=== PATIENT | male | born 1950 | race Two or more races ===

== ENCOUNTER 2024-10-15 06:07 | Inpatient (IN) | payer OTHER ==
[~2024-10-15] VITALS: Ht 170.2 cm; Wt 66.8 kg
[2024-10-15] MEDS: ceFAZolin 2 GM/D5W100ml 100 ML IV ONE (05:20)
[~2024-10-15 06:07] MED LIST: B-COCAP34 OR; BUPIVACAINE 0.25% INJ 50ML VIAL ONE; CALC280T PO; CEFEPIME 1GM/ 50ML 50 ML IV ONE; DOXAPRAM HCL 20 MG/ML 20ML VIAL INJ IV ONE; HYDROmorphone HCL 2 MG/ML VL/or syr ONE; KETAMINE 50mg/ML 1ml syringe ONE; KETOROLAC TROMETH 30 MG/ML 1ML VIAL ONE; LACT10SO3 PO; LIDOCAINE 1% INJ PF 5ML AMP ONE; LIDOCAINE HCL 2% TOP JELLY 5ML TOP ONE; MIDAZOLAM HCL 2MG/2ML 2ml VIAL (1mg/ml) ONE; MORPHINE SULF PF 5 MG/10 ML VIAL ONE; MULT-1198 PO; OXY10CRT PO; PROPOFOL 10 MG/ML 20 ML IV ONE; ROCURONIUM 10MG/ML 10ML VIAL IV ONE; SODIUM CHLORIDE LOCK 50 ML ONE; SUCCINYLCHOLINE CHLORIDE 20 MG/ML 10ML VIAL IV ONE; TRANEXAMIC ACID 20 ML ONE; VANCOMYCIN HCL 1000 MG VL ONE; VITALIQ10 XX; fentaNYL CITRATE 100 MCG/2 ML VL ONE; fentaNYL CITRATE 5 ML ONE
[2024-10-15] MEDS: ACETAMINOPHEN 325 MG TAB PO ONE (06:30)
[2024-10-15] MEDS ORDERED: DexAMETHasone SOD PHOS 10MG/1ML VIAL INJ ONE (06:33)
[2024-10-15] MEDS ORDERED: SUGAMMADEX 200mg/2ml Vial (100MG/ML) IV ONE (06:33)
[2024-10-15] MEDS: ACETAMINOPHEN 500 MG TAB or CAP PO ONE (07:15)
[2024-10-15] MEDS: PREGABALIN CAPSULE 75 MG CAP PO ONE (07:15)
[2024-10-15] MEDS: CELECOXIB 100 MG CAP PO ONE (07:15)
[2024-10-15] MEDS ORDERED: METOCLOPRAMIDE HCL 5MG/ml INJ 2ml VIAL IV ONE (07:30)
[2024-10-15] MEDS ORDERED: HYDROmorphone HCL 2 MG/ML VL/or syr IV PRN (07:30)
[2024-10-15] MEDS ORDERED: MORPHINE SULFATE INJ 2 MG/ml SYRG IV PRN ×2 (07:30→10:00)
[2024-10-15] MEDS ORDERED: MORPHINE SULFATE 4 MG/ML SYR/VIAL IV PRN (07:30)
[2024-10-15] MEDS ORDERED: oxyCODONE ER 20 MG TAB PO SCH (10:00)
[2024-10-15] MEDS ORDERED: HYDROMORPHONE HCL 1 MG/ML INJ IV PRN (10:00)
[2024-10-15] MEDS ORDERED: NITROGLYCERIN 0.4 MG SL TAB SL PRN (10:00)
[2024-10-15] MEDS ORDERED: ceFAZolin 1GM/50ML 50 ML IV SCH (10:00)
[2024-10-15 10:17] VITALS: PULSE 75; RESP 12; O2SAT 100
[2024-10-15] MEDS: HYDROmorphone HCL 2 MG/ML VL/or syr IV PRN (10:30)
[2024-10-15] MEDS: OXYCODONE W/ ACETAMINOPHEN 5/325MG TABLET PO PRN (11:16)
--- NOTE | 2024-10-15 13:30 | DVH ---
CLINICAL INDICATION: sp Left reverse TSA TECHNIQUE: 1 radiographic views of the left shoulder were obtained. Comparison: None FINDINGS/IMPRESSION: Postsurgical changes from left shoulder arthroplasty.
[2024-10-15] MEDS: ceFAZolin 1GM/50ML 50 ML IV SCH (16:06)
--- NOTE | 2024-10-15 16:42 | DVHINCON2 ---
Date Seen: Oct 15, 2024 Referring Physician Orthopedic surgery. Reason for Consultation Primary care management. History of Present Illness 73-year-old male with a known history of chronic back pain: Oxycodone at home, previous history of bilateral hip surgery, previous history of right shoulder surgery presented to the hospital with elective procedure for left shoulder rotator cuff surgery. Patient underwent reverse left shoulder arthroplasty. Postprocedure patient did fairly well. Denies any fevers chills, chest pain shortness breath, nausea vomiting hematemesis hematochezia melena dysuria in the GB. Past Medical History Chronic pain syndrome Past Surgical History Bilateral hip replacement Previous history of right shoulder rotator cuff surgery Allergies: Coded Allergies: NO KNOWN ALLERGIES (Unverified , 10/12/24) Home Meds Reported Medications Tocopherol, Dl-Alpha (Vitamin E) Liq, 1 XX DAILY, LIQ 10/12/24 Calcium Amino Acid Chelate (Calcium) 280 Mg Tab, PO DAILY, TAB 10/12/24 Oxycodone Hcl (OxyCONTIN ER Tablet) 10 Mg Tb, 10 MG PO PRN, TAB 10/12/24 B-Complex Vitamins (B Complex) Cap, 1 OR DAILY, CAP 10/12/24 Multiple Vitamins W/ Minerals (Centrum Adults 50+ Multig) 1 Chw Chw, 1 CHW PO DAILY, TAB.CHEW 10/12/24 Lactulose (Lactulose) 10 Gm/15 Ml Arianna, 15 ML PO, ML 10/12/24 Current Medications Current Medications Medications (Trade) Dose Ordered Sig/Rosemary Route PRN Reason Start Time Stop Time Status Last Admin Hydromorphone HCl (Dilaudid Injection) 0.5 mg Q10M PRN IV SEVERE PAIN (7-10 PAIN SCALE) 10/15/24 07:30 10/15/24 09:03 DC 10/15/24 14:22 Morphine Sulfate 2 mg Q4H PRN IV BREAKTHRU PAIN SCALE 7-10 10/15/24 07:30 10/15/24 11:31 DC Hydromorphone HCl (Dilaudid Injection) 0.25 mg Q10M PRN IV MODERATE PAIN (4-6 PAIN SCALE) 10/15/24 07:30 10/15/24 09:03 DC Morphine Sulfate 1 mg Q30M PRN IV SEVERE PAIN (7-10 PAIN SCALE) 10/15/24 07:30 10/15/24 09:31 DC Sodium Chloride (Saline Lock Ns) 10 ml Q8HR IV 10/15/24 14:00 Cefazolin Sodium 50 ml @ 50 mls/hr Q8H IV 10/15/24 10:00 10/15/24 12:38 DC Dextrose/Lactated Ringer's 1,000 ml @ 100 mls/hr Q10H IV 10/15/24 10:00 Nitroglycerin (Ntrostat Sublingual) 0.4 mg Q5MINP PRN SL FOR CHEST PAIN 10/15/24 10:00 Morphine Sulfate 2 mg Q30M PRN IV FOR CHEST PAIN 10/15/24 10:00 Oxycodone HCl (OxyCONTIN ER Tablet) 20 mg Q12HR PO 10/15/24 10:00 Cancel Oxycodone/ Acetaminophen (Percocet 5/ 325MG Tablet) 2 tab Q4HP PRN PO MILD PAIN (1-3 PAIN SCALE) 10/15/24 10:00 10/15/24 11:16 Hydromorphone HCl (Dilaudid Innjection) 1 mg Q3HPRN PRN IV MODERATE PAIN (4-6 PAIN SCALE) 10/15/24 10:00 Cefazolin Sodium 50 ml @ 50 mls/hr Q8H IV 10/15/24 16:30 10/16/24 09:29 10/15/24 16:06 Oxycodone HCl (OxyCONTIN ER Tablet) 20 mg Q12HR PO 10/15/24 22:00 Review of Systems 12 review of system are negative serum mentioned above Vital Signs Vital Signs Date Time Temp Pulse Resp B/P (MAP) Pulse Ox O2 Delivery O2 Flow Rate FiO2 10/15/24 15:30 78 12 116/65 (82) 97 10/15/24 10:17 Nasal Cannula 4.0 10/15/24 10:17 97.0 97.0 Physical Exam HEENT pupils are reactive Neck is supple CV is S1-S2 regular rate and rhythm Respiratory: Clear GI positive bowel sound Extremity no edema [employer] no motor deficit Assessment 73-year-old male with a known history of chronic pain syndrome is here for 1. Left shoulder rotator cuff tear status post reverse shoulder arthroplasty 2. Chronic pain syndrome -continue pain meds as needed, DVT GI prophylaxis, discharge plan per Orthopedics. Plan discussed with: Patient Date of Service: Oct 15, 2024 Billing Provider: JUANJOSE KRUGER MD Common Visit Codes: NOT BILLABLE JUANJOSE KRUGER MD Oct 15, 2024 16:42
[2024-10-15 17:43] VITALS: O2SAT 94
[2024-10-15 17:44] VITALS: BP 135/83; PULSE 82; RESP 17; TEMP 98.6; O2SAT 94
[2024-10-15] MEDS: D5W/LACTATED RINGERS 1,000 ML IV SCH (18:16)
[2024-10-15 20:00] VITALS: PULSE 95; RESP 16; O2SAT 94
[2024-10-15 21:00] VITALS: BP 118/60; PULSE 95; RESP 16; TEMP 98.4; O2SAT 94
[2024-10-15] MEDS: SODIUM CHLOR 0.9% PF (SALINE LOCK) 10ML VIAL/SYR IV SCH (22:06)
[2024-10-15] MEDS: oxyCODONE ER 10 MG TAB PO SCH (22:07)
[2024-10-16 05:00] VITALS: BP 136/66; PULSE 84; RESP 15; TEMP 98.5; O2SAT 94
--- NOTE | 2024-10-16 07:55 | DVHDS2 ---
Discharge Summary Date of Admission Oct 15, 2024 at 10:21 Date of Discharge: Oct 16, 2024 Wounds: If the wound is draining simply tape a dry gauze pad on the wound until it stops. If drainage persists past 10 days please notify our office. 1. You might notice some bruising around the surgical site, this is normal. 2. Please note that a low-grade temp below 101 is not uncommon after surgery especially during the first 3 days. Notify the office if your temperature spikes above 101.5 after the 3rd post-operative date. 3. Many patients experience significant swelling in the arm, this may extend below the elbow. Swelling increases during the first week and subsides during the following week. 4. Provided you have been on a blood thinner since surgery , the risk of a blood clot is low and this swelling is an expected part of recovery. It will largely or completely resolve by your first post-operative visit. 5. Apply ice to the shoulder as it will be quite helpful. After two days, you can change the dressing to a smaller one to allow the cold to better get to the shoulder. 6. Remove the sling - Move your elbow, wrist, hand and finger several times a day. Begin the pendulum exercises several times a day. 7. Put the sling back on when youre done with these exercises. 8. After two days it is okay to shower but do not get the wound wet for at least two weeks after surgery. Keep it covered with plastic wrap while showering. 9. Do not submerge the wound as you would in a bath tub or hot tub for at least 4 weeks after surgery. 10. To wash under your operated arm bend over at the waist and let the arm passively swing away from the body. It is safe to wash under the arm in this position. 11. You will need to take prophylactic antibiotics before dental procedures, colonoscopies or other invasive procedures. This consists of Amoxicilin (2 grams one hour prior to your procedure), or if you have a penicillin allergy you should take Clindamycin (600mg one hour prior to procedure). Brief Hx & Hospital Course: s/p left reverse total shoulder Condition at Discharge: Good Final Diagnosis/Problems List s/p reverse total shoulder arthroplasty Discharge Disposition: Home with Health Services Discharge Instruct/Medications Diet: Regular Diet comment: may advance diet as tolerated. drink plenty of fluids Activity: See Comment Activity comment: Reverse or Inverse Total Shoulder Arthroplasty (rTSA) is designed specifically for the treatment of glenohumeral (GH) arthritis when it is associated with irreparable rotator cuff damage, complex fractures as well as for a revision of a previously failed conventional Total Shoulder Arthroplasty (TSA) in which the rotator cuff tendons are deficient. The rotator cuff is either absent or minimally involved with the rTSA; therefore, the rehabilitation for a patient following the rTSA is different than the rehabilitation following a traditional TSA. The surgeon, physical therapist and patient need to take this into consideration when establishing the postoperative treatment plan. Important rehabilitation management concepts to consider for a postoperative physical therapy rTSA program are: Joint protection: There is a higher risk of shoulder dislocation following rTSA than a conventional TSA. o Avoidance of shoulder extension past neutral and the combination of shoulder adduction and internal rotation should be avoided for 12 weeks postoperatively. o Patients with rTSA dont dislocate with the arm in abduction and external rotation. They typically dislocate with the arm in internal rotation and adduction in conjunction with extension. As such, tucking in a shirt or performing bathroom / persona hygiene with the operative arm is an especially dangerous activity particularly in the immediate carmen-operative phase. Deltoid function: Stability and mobility of the shoulder joint is now dependent upon the deltoid and periscapular musculature. This concept becomes the foundation for the postoperative physical therapy management for a patient that has undergone rTSA. Follow Up/Referral: Call our office if you have any of the following: Fever over 101 degrees. Excessive bloody wound drainage Yellow, green or foul smelling drainage A large red area around the incisions. You suspect an allergic reaction to medications or dressing materials. This could be shortness of breath, a rash or redness, hives, etc. Severe tenderness or numbness in the leg. Move your toes and flex your ankles up and down several times an hour to keep the blood circulating. Medications: Take your regular medications as prescribed. You have been given a prescription for pain medication. Please take according to the instructions. If your pain becomes too severe, dont try to tough it out. Call our office if you have severe pain that doesnt respond to pain medication. Some pain medications contain Tylenol. DO NOT take additional Tylenol without discussing with your surgeon. This can lead to liver failure. Do not drive while you are on narcotic pain medication. Blood thinner ECASA 325 mg daily for 6 weeks Pain medication can cause constipation. Drink plenty of water and/or fruit juice. Take milk of magnesia if you become constipated, or use a stool softener such as Dulcolax. Discharge Statement: "Patient was advised to return to the ER or call 911 if any headaches, dizziness, shortness of breath, chest pain, abdominal pain, bleeding, fevers, or worsening of medical condition. Patient was counseled about treatment plan, medications, possible side effects, patientverbalized understanding. All questions were answered to the best of my ability. This discharge took greater then 30 minutes in planning, reviewing documentation, counseling the patient, and discussing with other team members." ASSESSMENT ASSESSMENT Assessment MOHAMUD WALTER NP Oct 16, 2024 07:55
[2024-10-16 08:08] VITALS: RESP 16; O2SAT 95
[2024-10-16 09:00] VITALS: BP 142/93; PULSE 86; RESP 17; TEMP 98.1; O2SAT 97
[2024-10-16 13:00] VITALS: BP 124/64; PULSE 83; RESP 19; TEMP 98.4; O2SAT 96
[2024-10-16 13:09] VITALS: TEMP 36.7
--- NOTE | 2024-10-19 17:57 | DVHOP2 ---
Operative Report - 2 Report Details Date: 10/15/24 Preop Diagnosis: Left shoulder rotator cuff arthropathy Postop Diagnosis: as above Surgeon: Mark Bernardo MD Event Marketing Specialist: Nelson HAMPTON Anesthesiologist: Neelam COX Anesthesia: General, Regional Implant: Shoulder FX see implant log Consent: The patient was informed of the risks and benefits of the procedure. These include but are not limited to complications of anesthesia, postoperative infection, incomplete relief of symptoms, recurrence of symptoms, damage to blood vessels, nerves and tendons, deep venous thrombosis, pulmonary embolism and possible need for repeat surgery in the future. Name of Procedure Performed Left reverse total shoulder replacement Procedure Details Procedure Details: The patient was taken to the operative suite, placed on the operative field. Department of Anesthesia administered general anesthetic. Once adequately sedated, the patient was placed in the beach chair position. Care was ensured that he was well positioned, adequately secured and padded. At this point, the right upper extremity was then prepped and draped in the usual sterile fashion. A deltopectoral approach was used and taken down to the skin with a #15 blade scalpel. He had a miniopen rotator cuff repair with an incision close to the deltopectoral approach. So this skin incision was incorporated. Cephalic vein was transported medially. At this point, blunt dissection with Dutta scissors was used to come to the overlying subscapular tendon and bursal tissue. Any perforating bleeders were cauterized with Bovie to obtain hemostasis. Once the bursa was seen, it was removed with a Rongeur and subscapular tendon could be easily visualized. At this point, the rotator cuff in the subacromial region was evaluated. There was noted to be a large rotator cuff, which was irreparable. There was eburnated bone on the greater tuberosity noted. The articular surface could be visualized. The biceps tendon was intact. Biceps tenodesis was done to the pec minor. At th is point, the subscapular tendon was then taken off using Bovie cautery and Metzenbaum scissors. Protection of axillary nerve was done while subscap and capsule fully releaed. It was from the capsule to have a two layered repair at closure. The capsule was also reflected posterior. At this point, the glenoid surface could be easily visualized. 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 The humeral head was evaluated. There was noted to be lara of the cartilage and eburnated bone particularly in the central portion of the humeral head. At this point, decision was made to proceed with the arthroplasty, since the rotator cuff tear was irreparable and there was significant lara of the humoral head. The arm was adequately positioned. An oscillating saw was used to make the head articular cut using guide. This was done at the margin of the articular surface with the anatomic neck. This was taken down to appropriate level until this articular surface was adequately removed. At this point, the intramedullary canal and cancellous bone could be easily visualized. The opening hand reamers were then used and this was advanced to a size that had a good fit. Under direct visualization, this was performed easily. This was then removed. A trial component was then impacted into place, which did fit well and appeared adequately secured. We then turned our attention to glenoid. Batman retractor placed posteroinferiorly on glenoid. Subscap was mobilized wtih protection the axillary nerve with palpation. Willem was place between subscap and gelnoid. A bent manish was placed just above the the biceps tendon on the glenoid. Labrum was removed and capsule was released. We then placed glenoid drill guide and steinmann pin according to CT for correct version. We reamed glenoid down to bleeding cancellous bone. Glenoid irrigataed and glenoid component placed. 4 locking screws placed. Correct glenosphere offset determined and glenosphere impacted. Stand humeral tray and liner trialed with good IR/ER/FF and stability with only 1 mm shuck. Trial liner removed. Humerus trial removed. Correct humeral implant impacted along with tray and liner. Stability was appropriate. Subscap was able to be repaired. Wound was irrigated. Deltopectoral interval closed with 0-vicryl followed by 2-0 and femi for skin. Aquacel dressing placed. Condition Good Disposition Still a Patient MARK BERNARDO MD Oct 19, 2024 17:57
== END 2024-10-16 16:00 | disposition home or self-care (01) | DRG 483 ==
LOC: SUR 06:07 → OVERFLOW 10:21 → WEST WING 17:19
PROVIDERS: ADMIT Orthopaedic Surgery Adult Reconstructive Orthopaedic Surgery; ATTEND Orthopaedic Surgery Adult Reconstructive Orthopaedic Surgery
PROC: 0RRK00Z Replacement of Left Shoulder Joint with Reverse Ball and Socket Synthetic Substitute, Open Approach (ICD-10-PCS; principal; 2024-10-15 08:22)
DX: M75.102 Unspecified rotator cuff tear or rupture of left shoulder, not specified as traumatic (principal); Z79.899 Other long term (current) drug therapy; G89.4 Chronic pain syndrome; M12.812 Other specific arthropathies, not elsewhere classified, left shoulder; M54.9 Dorsalgia, unspecified; Z96.643 Presence of artificial hip joint, bilateral; Z79.891 Long term (current) use of opiate analgesic
CPT/HCPCS: 73020; 86850; 86900; 86901; A4565; G0378; J0330; J1100; J1885; J2250; J2704; J3490